=== PATIENT | female | born 1990 | race Caucasian/White ===

== ENCOUNTER → 2017-06-13 | Outpatient (CLI) | payer OTHER | END | disposition home or self-care (01) | DX: Z53.9 Procedure and treatment not carried out, unspecified reason (principal) ==

== ENCOUNTER 2022-03-27 09:49 | Emergency (ER) | payer OTHER ==
[2022-03-27 09:55] VITALS: RESP 18
[2022-03-27] MEDS ORDERED: SODIUM CHLORIDE 0.9% 1,000 ML IV STA (10:08)
[2022-03-27] MEDS ORDERED: KETOROLAC 15 MG/ML 1 ML VIAL IVP STA (10:10)
[2022-03-27 10:55] LABS: Basophils # (A) 0.1 k/uL (0-0.2); Basophils % (A) 1 %; Eosinophils # (A) 0.4 k/uL (0-0.7); Eosinophils % (A) 4 %; HCT 40.9 % (34.0-46.0); HGB 13.9 gm/dL (11.4-16.0); Lymphocytes # (A) 1.7 k/uL (1.0-4.8); Lymphocytes % (A) 16 %; MCH 28.1 pg (25.0-35.0); MCV 82.5 fL (80.0-100.0); Mean Platelet Volume 7.3; Monocytes # (A) 0.6 k/uL (0-1.0); Monocytes % (A) 6 %; Neutrophils # (A) 7.6 k/uL (1.3-7.7); Neutrophils % (A) 73 %; Platelet Count 282 k/uL (150-450); RBC 4.96 m/uL (3.80-5.40); RDW 13.2 % (11.5-15.5); WBC 10.5 k/uL (3.8-10.6)
[2022-03-27 11:05] LABS: ALT 39 U/L (4-34); AST 39 U/L (14-36); African American GFR (CKD) >90 (>60 ml/min/1.73 sqM); Albumin 4.4 g/dL (3.5-5.0); Alkaline Phosphatase 82 U/L (38-126); Anion Gap 10 mmol/L; Blood Urea Nitrogen 9 mg/dL (7-17); Carbon Dioxide 22 mmol/L (22-30); Chloride 105 mmol/L (98-107); Glucose 99 mg/dL (74-99); Magnesium 1.8 mg/dL (1.6-2.3); Non-African American GFR(CKD) >90 (>60 ml/min/1.73 sqM); Potassium 3.6 mmol/L (3.5-5.1); Sodium 137 mmol/L (137-145); Total Bilirubin 0.6 mg/dL (0.2-1.3); Total Protein 7.5 g/dL (6.3-8.2)
[2022-03-27 11:09] LABS: INR 0.9 (<1.2); Partial Thromboplastin Time 24.8 sec (22.0-30.0); Prothrombin Time 10.3 sec (9.0-12.0)
[2022-03-27 11:30] LABS: Appearance,Urine Cloudy (Clear); Bacteria,Urine Occasional /hpf; Bilirubin,Urine Negative (Negative); Blood,Urine Large (Negative); Color,Urine Light Yellow; Glucose,Urine (UA) Negative (Negative); Ketones,Urine Negative (Negative); Leukocyte Esterase,Urine Large (Negative); Mucus,Urine Rare /hpf; Nitrite,Urine Negative (Negative); PH, Urine 5.5 (5.0-8.0); Protein,Urine Negative (Negative); RBC,Urine 2 /hpf (0-5); Squamous Epithelial Cell,Urine 2 /hpf (0-4); Urobilinogen,Urine <2.0 mg/dL (<2.0); WBC,Urine 5 /hpf (0-5)
--- NOTE | 2022-03-27 11:51 | XR ---
EXAMINATION TYPE: XR chest 2V DATE OF EXAM: 03/27/2022 COMPARISON: NONE HISTORY: Chest pain TECHNIQUE: Frontal and lateral views of the chest are obtained. FINDINGS: There is no focal air space opacity. No evidence for pneumothorax. No pleural effusion. The cardiac silhouette size is within normal limits. The osseous structures are grossly intact. IMPRESSION: 1. No acute cardiopulmonary process.
--- NOTE | 2022-03-27 13:28 | ED ---
Chest Pain HPI - General Chief Complaint: Chest Pain Stated Complaint: miguel Time Seen by Provider: 03/27/22 10:02 Source: patient Mode of arrival: ambulatory Limitations: no limitations - History of Present Illness Initial Comments: Patient is a 31-year-old female presenting with chief complaint of chest pain. Patient states the pain began around 7 PM last night. Patient states every time she inhales there is sharp pain at the center of her chest. She is also complaining of shortness of breath. She has not taken any supportive treatment at home. Denies palpitations, weakness, fever, chills, nausea, vomiting, radiation of pain down arms or up neck, back pain, abdominal pain, recent illness. - Related Data Home Medications Medication Instructions Recorded Confirmed No Known Home Medications 03/27/22 03/27/22 Allergies Allergy/AdvReac Type Severity Reaction Status Date / Time No Known Allergies Allergy Verified 03/27/22 10:45 Review of Systems ROS Statement: Those systems with pertinent positive or pertinent negative responses have been documented in the HPI. ROS Other: All systems not noted in ROS Statement are negative. EKG Findings - EKG Comments: EKG Findings:: Sinus rhythm. Rate 85. AZ interval 152. QRS duration 79. QTC 376. Normal axis. No acute ST or T-wave changes. Past Medical History Past Medical History: No Reported History History of Any Multi-Drug Resistant Organisms: None Reported Past Surgical History: No Surgical Hx Reported Past Psychological History: No Psychological Hx Reported Smoking Status: Vaper Past Alcohol Use History: None Reported Past Drug Use History: None Reported General Exam Limitations: no limitations General appearance: alert, in no apparent distress Head exam: Present: atraumatic, normocephalic, normal inspection Eye exam: Present: normal appearance, EOMI. Absent: scleral icterus, periorbital swelling Neck exam: Present: normal inspection Respiratory exam: Present: normal lung sounds bilaterally, chest wall tenderness (Reproducible pain along the sternum.). Absent: respiratory distress, wheezes, rales, rhonchi, stridor Cardiovascular Exam: Present: regular rate, normal rhythm, normal heart sounds. Absent: systolic murmur, diastolic murmur, rubs, gallop, clicks Extremities exam: Present: normal inspection Back exam: Present: normal inspection Neurological exam: Present: alert, oriented X3, CN II-XII intact Psychiatric exam: Present: normal affect, normal mood Skin exam: Present: warm, dry, intact, normal color. Absent: rash Course Vital Signs 03/27/22 03/27/22 03/27/22 09:51 10:55 11:03 Temperature 97.7 F Pulse Rate 92 85 Pulse Rate [ 85 [employer]] Respiratory 18 18 Rate Blood Pressure 110/62 112/70 O2 Sat by Pulse 96 98 Oximetry 03/27/22 14:00 Temperature 98.0 F Pulse Rate 90 Pulse Rate [ [employer]] Respiratory 18 Rate Blood Pressure 114/68 O2 Sat by Pulse 98 Oximetry Chest Pain MDM - MDM Patient is a 31-year-old female presenting with chief complaint of pleuritic chest pain that started last night. She admits to shortness of breath. On exa mination there is reproducible chest pain along the sides of the sternum. Heart and lungs are clear to auscultation. CBC, PT/INR, d-dimer are negative. Electrolytes are WNL. AST and ALT are mildly elevated, this is consistent with her baseline. Initial Troponin is 0.020. Chest x-ray shows no acute process. Patient was given Toradol and fluids, on reassessment she reports much improvement. Repeat troponin is 0.019. Patient still reports improvement in symptoms. She appears stable for discharge with outpatient follow-up at this time. Follow-up with PCP in one to 2 days. Report back to ER if any new or worsening symptoms. Discussed return parameters and answered all questions. Patient conveyed verbal understanding and agreed to the plan I discussed this case with my attending Dr. Joiner Disposition Clinical Impression: Costochondral chest pain Disposition: HOME SELF-CARE Condition: Good Instructions (If sedation given, give patient instructions): Chest Pain (ED), Costochondritis (ED) Additional Instructions: Follow-up with PCP 1-2 days. Report back to ER if any new or worsening symptoms. Take Motrin and Tylenol as needed for pain control. Stay well- hydrated and get plenty of rest. Is patient prescribed a controlled substance at d/c from ED?: No Referrals: None,Stated [Primary Care Provider] - 1-2 days Time of Disposition: 14:16
[2022-03-27 14:09] VITALS: BP 114/68; PULSE 90; TEMP 98
== END 2022-03-27 14:50 | disposition home or self-care (01) ==
LOC: EC 09:49
DX: R07.89 Other chest pain (principal); F17.200 Nicotine dependence, unspecified, uncomplicated
CPT/HCPCS: 36415; 93005; 85379; 80053; 83605; 83735; 84484; 85025; 85610; 85730; 81001; 81025; 71046; 99285; 96374; 96361; J1885